=== PATIENT | male | born 1980 | race Caucasian/White ===

== ENCOUNTER → 2022-01-08 | Outpatient (CLI) | payer OTHER ==
[~2022-01-08] MED LIST: IOPAMIDOL 370 MG/ML 100 ML INFUS..BTL INJ ONE; METOPROLOL TARTRATE 25 MG TAB ONE; METOPROLOL TARTRATE INJ 1 MG/ML VIAL ONE; NITROGLYCERIN 0.4 MG SUBL ONE; SODIUM CHLORIDE 0.9% 100 ML ONE
[2022-01-08 08:32] LABS: CREATININE, SERUM 1.1 mg/dL (0.72-1.25)
== END ==
LOC: CT 07:46
PROVIDERS: ATTEND Internal Medicine Interventional Cardiology
DX: R07.9 Chest pain, unspecified (principal)
CPT/HCPCS: 36415; 75574; 82565; 84520; J7050; Q9967; 0502T; 0503T